=== PATIENT | female | born 1945 | race Caucasian/White ===

== ENCOUNTER 2016-12-27 21:15 | Inpatient (IN) ==
--- NOTE | 2016-12-27 22:03 | PROVIDER DOCUMENTATION ---
HPI-General Adult - General Chief Complaint: Abscess Stated Complaint: ABSCESS Time Seen by Provider: 12/27/16 21:48 Source: patient Allergies/Adverse Reactions: Patient Allergies Allergy/AdvReac Type Severity Reaction Status Date / Time Unable to Assess Allergy Verified 12/27/16 21:35 Home Medications: Home Medication List Medication Instructions Recorded Confirmed Last Taken Type Amoxicillin/Potassium Clav 875 mg PO BID 12/27/16 12/27/16 Unknown History [Amox-Clav 875-125 mg Tablet] Hydrocodone/Acetaminophen 5 mg PO 12/27/16 Unknown History [Hydrocodon-Acetaminophen 5-325] Lisinopril/Hydrochlorothiazide 10 mg PO DAILY 12/27/16 12/27/16 Unknown History [Lisinopril-Hctz 20-12.5 mg Tab] Metoprolol Succinate [Toprol Xl] 100 mg PO DAILY 12/27/16 12/27/16 Unknown History Warfarin Sodium [Warfarin Sodium] 5 mg PO DAILY 12/27/16 12/27/16 Unknown History - History of Present Illness -Gen Adult Nature of Presenting Problems: Pt. is 71 yof that presents with c/o abscess to genital area. Pt. reports symptoms for one week. Pt. states she saw her PCP and was placed on augmentin. Pt. states it has continued to get worse. Pt. reports a foul odor. Location of Pain/Injury: reports: genitalia. denies: none, head, face, mouth, neck, chest, upper extremity, hand(s), abdomen, back, pelvis, lower extremity, feet, upper body, lower body, generalized, other Pain Radiation: reports: no radiation. denies: arm(s), back, buttocks, chest, epigastric, feet, groin, jaw, flank (L), legs (lower), LLQ, LUQ, neck, periumbilical, flank (R), RLQ, RUQ, shoulder(s), scapula, scrotal, sternal notch , suprapubic, legs (upper), urethral, vaginal, other Quality of Pain: reports: aching. denies: burning, cramping, dull, fullness, indigestion, pressure, sharp, stabbing, tearing, throbbing, tightness Severity: reports: moderate. denies: mild, severe Onset/Duration: reports: gradual, 1 week ago Timing: reports: still present, constant, changing over time, getting worse. denies: improving, gone now, resolved prior to arrival, intermittent Context/Activities at Onset: reports: none. denies: recent emotional stress, recent physical stress, recent trauma history, possible bad food, cold exposure , out of country travel Modifying Factors: improves with: nothing Associated Symptoms: reports: genitourinary problems. denies: denies symptoms, anxiety, arm pain, back/neck pain, chest pain, constipation, cough, diaphoresis , diarrhea, dizziness, EENT symptoms, fatigue, fever/chills, headaches, heartburn, joint pain, loss of appetite, malaise, muscle aches, sinus congestion /drainage, nausea, rash, seizure, shortness of breath, sensory/motor loss, pain with inspiration, swelling/mass in abdomen, syncope, vomiting, weakness, trouble walking, other Similar Symptoms Previously?: Yes Recently seen or treated by another doctor?: Yes Review of Systems - Adult - REVIEW OF SYSTEMS - ADULT Constitutional: reports: see HPI. denies: chills, fever, fatique Eyes: reports: see HPI. denies: discharge, blurred vision, double vision Ears, Nose, Mouth & Throat: reports: see HPI. denies: ear discharge, nose pain , mouth/dental pain, throat swelling Cardiovascular: reports: see HPI. denies: chest pain, irregular heart rate, palpitations, syncope Respiratory: reports: see HPI. denies: cough, dyspnea on exertion, pleurisy, shortness of breath, wheezing Gastrointestinal: reports: see HPI. denies: abdominal pain, hematemesis, diarrhea, nausea, vomiting Genitourinary: reports: see HPI. denies: dysuria, discharge, hematuria, incontinence, urgency Musculoskeletal: reports: see HPI. denies: bone pain, back pain, joint pain, muscle aches, muscle weakness, neck pain Integumentary: reports: see HPI, skin sores/ulcer (Large abscess to the left buttock at the labia majora with erythema to the surrounding area.). denies: hives, itching, rash Neurological: reports: see HPI. denies: ataxia, headache/migraines, numbness, seizure, tremors Psychiatric: reports: see HPI. denies: anxiety, depression, emotional problems , insomnia, panic attacks, suicidal thoughts Past History - Adult - PAST MEDICAL HISTORY-ADULT Review of Records: reports: Old Records Reviewed, Nursing Assessment Review, Medications Reviewed, Social history reviewed & non-contributory. - IMMUNIZATION STATUS Childhood Immunizations: See Nurse Assessment Flu Vaccine: See Nurse Assessment - FAMILY HISTORY Family History: reviewed, not pertinent - SOCIAL HISTORY Smoking: non-smoker Physical Exam-General - PHYSICAL EXAM-ADULT Initial Vital Signs Reviewed: Yes - CONSTITUTIONAL General Appearance: alert, moderate distress, obese. negative: thin, anxious, lethargic, slow to respond, obtunded, combative - EYES Eyes: PERRL/EOMI, pink conjunctivae. negative: conjuctival exudate, scleral icterus, subconjunctival hemorrhage - HEAD, EARS, NOSE, MOUTH & THROAT HENMT: normocephalic/atraumatic, moist mucous membranes. negative: angioedema, frontal tenderness, maxillary tenderness - NECK Neck: non-tender, full range of motion, supple, normal inspection. negative: lymphadenopathy, trachial deviation, thyromegaly - RESPIRATORY Respiratory: lungs clear, normal breath sounds. negative: crackles, rales, rhonchi, stridor, wheezing - CARDIOVASCULAR Cardiovascular: normal peripheral pulses, regular rate, rhythm, no edema, no JVD , no murmur. negative: extra beats, friction rub, irregularly irregular - GASTROINTESTINAL (ABDOMEN) Abdominal Exam: normal bowel sounds, non tender, soft. negative: distended, guarding, rigid, rebound, tenderness, hernia, mass - GENITOURINARY Female Genitalia/Pelvic Exam: lesions (There is a large necrotic lesion on the left buttock that carries over onto the left labia majora with massive surrounding erythema. The necrotic area is approximatly 3 inches by 1.5 inches with mild drainage. There is a foul odor coming from the lesion.) Rectal Exam: deferred Hemoccult Exam: deferred - LYMPHATIC Lymphatic: no adenopathy. negative: axilla node tender, cervical node tenderness - MUSCULOSKELETAL Back Exam: normal inspection, no CVA tenderness, no vertebral tenderness. negative: ecchymosis, swelling, vertebral tenderness Extremity: normal range of motion, non-tender, normal gait, normal inspection. negative: deformity, erythema, inflammation, swelling, tenderness Peripheral Pulses: radial (R): 2+, radial (L): 2+ - SKIN Integumentary: normal color, normal turgor, warm/dry, embolic lesions (There is a large necrotic lesion on the left buttock that carries over onto the left labia majora with massive surrounding erythema. The necrotic area is approximatly 3 inches by 1.5 inches with mild drainage. There is a foul odor coming from the lesion.), erythema (There is a large necrotic lesion on the left buttock that carries over onto the left labia majora with massive surrounding erythema. The necrotic area is approximatly 3 inches by 1.5 inches with mild drainage. There is a foul odor coming from the lesion.), swelling ( There is a large necrotic lesion on the left buttock that carries over onto the left labia majora with massive surrounding erythema. The necrotic area is approximatly 3 inches by 1.5 inches with mild drainage. There is a foul odor coming from the lesion.), tenderness (There is a large necrotic lesion on the left buttock that carries over onto the left labia majora with massive surrounding erythema. The necrotic area is approximatly 3 inches by 1.5 inches with mild drainage. There is a foul odor coming from the lesion.). negative: cyanosis, diaphoresis, ecchymosis, jaundice, mottled, pallor, petechiae, purpura , rash - NEUROLOGIC Neurologic: grossly normal, no motor/sensory deficits. negative: aphasia, facial droop, focal weakness, motor weakness, sensory deficit - PSYCHIATRIC Psych/Mental Status: normal mood/affect, normal thought content, normal thought process, oriented x 3. negative: anxious, paranoid, tearful Progress - PLAN OF CARE/RESULTS Progress/Plan/Lab Results: Vital Signs - 8 hr 12/27/16 21:28 Temperature 98 F Pulse Rate 90 Respiratory Rate 18 Blood Pressure 147/88 O2 Sat by Pulse Oximetry 96 Orders Category Date Time Status Saline Loc NOW Care 12/27/16 21:57 Ordered CBC WITH ELECTRONIC DIFF [HEME] Stat Lab 12/27/16 21:57 Ordered COMPREHENSIVE METABOLIC PANEL [CHEM] Stat Lab 12/27/16 21:57 Ordered WOUND CULTURE INC GRAM STAIN [RM] Stat Lab 12/27/16 22:00 Uncollected Discussed results and plan of care with patient. Patient agrees with plan and verbalizes understanding. - CONSULTS/PCP/HOSPITALIST Notification #1 *Consult/PCP/Hospitalist*: Dr. Pang Time Discussed: 22:00 Reason/Comments: Consult Consult Disposition: other (Admit to medicine and he will see in the morning. He states he does not need blood cultures.) #2 Consult: Dr. Banuelos Time Discussed: 22:02 Reason/Comments: Admission Consult Disposition: Admit Departure - Departure Date of Disposition Decision: 12/27/16 Time of Disposition Decision: 22:16 DIAGNOSIS: Abscess Disposition: ADMITTED INPATIENT 09 Certified Medical Emergency: Emergent Condition: Stable Referrals and Follow-Ups: Kevin Jackson MD [Primary Care Provider] - - Critical Care Note This patient required my direct & personal management of CC.: No Attestation - Physician/ BEBETO Attestation Patient care was provided by Advanced Practice Provider:: Yes Advanced Practice Provider:: Amie Mckinney (The physician is on site and available for consultation but did not have face to face contact with the patient. ) Advanced Practice Provider documentation review:: The Mid-level provider documentation, treatment plan and medical decision making was reviewed by the physician who agrees with all treatment and medical decision making by the MLP.
[2016-12-27] MEDS ORDERED: MORPHINE IV PRN (22:17)
[2016-12-27] MEDS ORDERED: TYLENOL PO PRN (22:17)
[2016-12-27] MEDS ORDERED: NS 1,000 ML IV ONE (22:17)
[2016-12-27] MEDS ORDERED: ZOFRAN IV PRN (22:17)
[2016-12-27 23:12] LABS: BASO% 0.3 % (0.0-0.8); EOS# 0.17 X1000 (0.0-0.7); EOS% 1.1 % (0.0-10.0); HEMATOCRIT 32.7 % (37.0-47.0); HEMOGLOBIN 10.7 g/dL (12.0-16.0); IMM GRAN# 0.38 X1000 (0.0-0.04); IMM GRAN% 2.5 % (0.0-0.5); LYMPH# 2.64 X1000 (1.2-3.4); LYMPH% 17.3 % (20.5-51.1); MANUAL DIFF NEEDED? NO; MCH 26.7 PG (27-31); MCHC 32.7 g/dL (33-37); MCV 81.5 FL (81-99); MONO# 1.22 X1000 (0.11-0.59); MPV 9.1 FL (7.4-10.4); NEUT% 70.8 % (42.2-75.2); PLT 481 X1000 (130-400); RBC 4.01 XMIL (4.2-5.4)
[2016-12-27 23:17] LABS: AGAP 13; ALKALINE PHOSPHATASE 162 U/L (32-104); BUN 30 mg/dL (8-22); CALCIUM 8.7 mg/dL (8.8-10.2); CHLORIDE 103 mmol/L (98-107); COSMO 286; GOT 34 U/L (10-30); GPT 28 U/L (10-36); POTASSIUM 3.9 mmol/L (3.5-5.1); SODIUM 139 mmol/L (136-145); TCO2 24 mmol/L (25-35); TOTAL PROTEIN 7.2 g/dL (6.3-8.3)
[2016-12-27] MEDS: ZOSYN 3.375 GM/NS 3.375 GM/50 ML IVPB IV SCH (23:17)
[2016-12-28] MEDS: ZOSYN 3.375 GM/NS 3.375 GM/50 ML IVPB IV SCH ×6 (04:10→23:34)
[2016-12-28] MEDS ORDERED: VANCOMYCIN IV PER PHARMACY MISC SCH (08:30)
[2016-12-28 08:32] LABS: PTT PL 84.7 Seconds (22.6-43.9)
[2016-12-28] MEDS: MORPHINE IV PRN ×2 (08:40→21:34)
[2016-12-28 09:33] LABS: PROTIME 52.6 Seconds (12.1-15.5)
[2016-12-28 09:35] LABS: INR 6.02 (0.86-1.15)
[2016-12-28] MEDS ORDERED: VANCOMYCIN 2,000 MG in NS 500 ML IV ONE (10:00)
[2016-12-28] MEDS ORDERED: VITAMIN K 10 MG in NS 50 ML IV ONE (10:38)
[2016-12-28] MEDS ORDERED: NS 500 ML ONE (11:24)
[2016-12-28] MEDS ORDERED: ROBINUL ONE (12:11)
[2016-12-28] MEDS ORDERED: QUELICIN (DOSE) ONE (12:11)
[2016-12-28] MEDS ORDERED: ZEMURON ONE (12:11)
[2016-12-28] MEDS ORDERED: DIPRIVAN 1% ONE ×2 (12:12→12:54)
[2016-12-28] MEDS ORDERED: XYLOCAINE-MPF 2% ONE (12:12)
[2016-12-28] MEDS ORDERED: FENTANYL ONE (12:14)
[2016-12-28] MEDS ORDERED: NS 250 ML ONE (12:59)
[2016-12-28] MEDS ORDERED: MORPHINE ONE (13:32)
--- NOTE | 2016-12-28 14:15 | CONSULTATION ---
DATE OF CONSULTATION: 12/28/2016 REASON FOR CONSULTATION: Labial abscess. SUMMARY: Klarissa Farris is a 71-year-old who has approximately 10-12 day history of a "boil" on her buttocks. She saw a provider at med surg and later saw Dr. Jackson, she was placed on 1 set of antibiotics that she apparently had a reaction to, she is unsure what those antibiotics are, Dr. Jackson later started her on Augmentin. There was spontaneous drainage of this abscess later. She went to the emergency room last evening with increased pain and she was diagnosed with a labial abscess and was admitted to the hospital. Zosyn was started. PAST MEDICAL HISTORY: Patient has a history of atrial fibrillation, she also has history of hypertension. She is on anticoagulants. PHYSICAL EXAMINATION: Shows a morbidly obese female. Vital Signs stable. She is afebrile. On examination there is erythema and swelling from her left labia all way around to the buttocks to the lower back. There are several draining lesions in this area. Wound culture has been performed. IMPRESSION: Labia/buttocks abscess. PLAN: It is impossible say whether this started as labial abscesses and has tracked to the buttocks or some type of perirectal abscess that has tracked. I have consulted Dr. London, he will come in to see her, anticipate will have to take her to the operating room at some point for exam under anesthesia to see if there is a rectal track. Will also need to do an extensive debridement. She is on Zosyn, I am going to add vancomycin to her antibiotic protocol as we wait Dr. London's input. cc: Kilo Pang MD [facility]
[2016-12-28 14:34] LABS: INR 2.19 (0.86-1.15); PROTIME 24.2 Seconds (12.1-15.5)
--- NOTE | 2016-12-28 16:10 | HISTORY AND PHYSICAL ---
PRIMARY CARE PHYSICIAN: Dr. Kevin Jackson. CHIEF COMPLAINT: Genital abscess for the past week that has progressively worsened. HISTORY OF PRESENTING ILLNESS: This is a 71-year-old, morbidly obese, female who presents to [facility] ER with complaints of a genital abscess for 1 week that has progressively worsened and is now draining. She is noted to have a white blood cell count is 15.26. She had a PT and INR this a.m. that was 52.6 and 6.02. The area is to her left labia and it is draining a foul-smelling, green pus that is stringing out of the wound, tender to touch. So, she has been admitted for further evaluation and treatment. PAST MEDICAL HISTORY: Hypertension, atrial fibrillation, and hypercholesterolemia. PAST SURGICAL HISTORY: Cataract surgery, appendectomy, cholecystectomy, bilateral tubal ligation, and a hysterectomy. FAMILY HISTORY: Noncontributory. SOCIAL HISTORY: She currently is living with her daughter. Denied any tobacco, alcohol, or illicit drug use. ALLERGIES: She has no known drug allergies. MEDICATIONS: We will hold the following medications at this time. She was taking amoxicillin 875 mg p.o. b.i.d., Novelty 5 one p.o. q.4 hours p.r.n., and warfarin 5 mg p.o. daily. We will continue the following, to begin in the a.m. Lipitor 10 mg p.o. daily, lisinopril/hydrochlorothiazide 20/12.5 p.o. daily, and metoprolol 100 mg p.o. daily. LABORATORY DATA: Showed a white blood cell count of 15.26, hemoglobin 10.7, hematocrit 32.7, platelets 481,000. PT and INR of 52.6 and 6.02. Sodium 139, potassium 3.9, chloride 103, CO2 24, BUN of 30, creatinine 0.8, glucose of 146. REVIEW OF SYSTEMS: She denied any fever, chills, blurred vision, dizziness, chest pain, coughing, shortness of breath, abdominal pain, constipation, diarrhea, burning or hurting with urination. She is positive for pain to her left labia in the perineal area due to her abscess that is draining. PHYSICAL EXAMINATION: VITAL SIGNS: On arrival, she had a temperature of 98 degrees, pulse 90 respirations 18, blood pressure 147/88, saturating 96% on room air. GENERAL: This is a 71-year-old morbidly obese, female lying in the bed, answers questions appropriately. HEENT: Normocephalic and atraumatic. Pupils are equal, round, reactive to light. Extraocular movements are intact. The oropharynx and nares are clear. NECK: Supple. LUNGS: Clear to auscultation bilaterally with equal lung expansion and chest wall movement. HEART: With regular rate and rhythm. No murmurs, rubs, or gallops. ABDOMEN: Soft, nontender, nondistended. Bowel sounds are present x4 quadrants. EXTREMITIES: No clubbing, cyanosis, or edema. GENITOURINARY: Patient is noted to have an abscess to the left outer labia that is draining a foul-smelling, green, stringy, purulent discharge. NEUROLOGICAL: The cranial nerves 2 through 12 are grossly intact. ASSESSMENT: 1. Left labial abscess. 2. Coagulopathy secondary to Coumadin use. 3. Leukocytosis. 4. Hypertension. PLAN: She was admitted to the medical unit. Held NPO. We have consulted surgery who plans to take her for an I D after we give 2 units of fresh frozen plasma and give vitamin K 10 mg IV x1. Continue her on Zosyn 3.375 g IV q.6 and vancomycin per pharmacy protocol. NURSES' AIDE was also consulted. Wound culture has been obtained and is pending. Dictated by SASHA Edmonds for Jhony Devries MD cc: SASHA Edmonds MD David Francis, MD
--- NOTE | 2016-12-28 16:49 | CONSULTATION ---
DATE OF CONSULTATION: 12/28/2016 Ms. Farris is a middle aged, overweight white female who presented to the emergency department yesterday with foul smelling drainage and skin necrosis involving the left perineum including the left labia majora and buttock. She had a foul older from this drainage. She was admitted to the hospitalist at [facility]. We were asked to see her today. I was called by Dr. Pang, BOARD HAMMER OPERATOR. PAST MEDICAL HISTORY: She is anticoagulated. MEDICATIONS: Coumadin, metoprolol, lisinopril, hydrocodone and amoxicillin ALLERGIES: No known drug allergies. SOCIAL HISTORY: Her family is at the bedside. REVIEW OF SYSTEMS: A 14 point review of systems was performed and was essentially negative except for this recent infection. PHYSICAL EXAM: Vital signs: On exam, her temperature is 98 degrees, heart rate is 90, blood pressure 147/88. General: She is an overweight white female. No acute distress. She is awake, cooperative, seems comfortable. HEENT Exam: No jaundice. No oral lesions. No cervical or supraclavicular lymphadenopathy. Heart: Has an irregular rate. Lungs: Were clear. Abdomen: Was soft. She had foul-smelling drainage involving her left groin and buttock, also necrotic tissue consistent with soft tissue infection. Rectal/Vaginal: Exams not performed. Extremities: She does have palpable peripheral pulses. Minimal peripheral edema. Neurologic: She had no focal deficits. IMPRESSION: Necrotizing soft tissue infection, left perineum and buttock. PLAN: Vitamin K, fresh frozen to correct her INR of 6 and take her to surgery for debridement of infected tissue and packing of the wound. I have discussed this procedure in detail with the patient and the family at the bedside. They understand she will have an open wound that is packed open. We may have to take her back to surgery to control a ongoing infection. She also understands she is at increased risk for bleeding because of her Coumadin. cc: Evie London MD
--- NOTE | 2016-12-28 18:54 | OPERATIVE NOTE ---
PROCEDURE DATE: 12/28/2016 PREOPERATIVE DIAGNOSIS: Necrotizing soft tissue infection, left buttock and perineum. POSTOPERATIVE DIAGNOSIS: Necrotizing soft tissue infection, left buttock and perineum. PRINCIPAL PROCEDURE: Debridement of skin, subcutaneous tissue, muscle and tendon of a 15 x 6 cm cavity perianal area left buttock and extending anteriorly into the left perineum. SURGEON: Evie London MD. ANESTHESIA: General. ESTIMATED BLOOD LOSS: 50 mL. DRAINS: None. INDICATIONS: Ms. Klarissa Farris is a 71-year-old overweight, white female, with possible diabetes who is admitted through the emergency department with a soft tissue infection, left buttock during the night. She was initially seen by Dr. Pang and I was asked to evaluate her. She has been on IV antibiotics. She had a necrotizing soft tissue infection involving her left buttock and surgical debridement was recommended. FINDINGS: She had this infection that extended from just lateral to the anus anteriorly involving the medial aspect of her left buttocks and up into the perineum. This involved her skin, subcutaneous tissue, muscle and deep fascia. The wound measured 15 x 6 cm. DESCRIPTION OF OPERATION: The patient was brought to the operating room, placed supine, received general anesthesia, was intubated. She was placed in candy-cane stirrups and the perineum and perirectal area were prepped and draped within the sterile field. I used Valdez scissors and forceps with teeth to debride the necrotic skin, subcutaneous tissue, muscle and tendon involving this wound. We debrided all this grayish foul-smelling tissue from the base of the abscess cavity. We felt we fully opened the wound. I had to use a 10 blade scalpel to open this area wider. We used cautery for bleeding. We thoroughly irrigated out the wound and then packed it with dilute soaked Betadine gauze, followed by a dry dressing. Plans are for her to go the recovery room and then be readmitted to the floor. cc: Evie London MD
[2016-12-28] MEDS: LIPITOR PO SCH (20:31)
[2016-12-28] MEDS: VANCOMYCIN 1,400 MG in NS 250 ML IV SCH (21:35)
[2016-12-29] MEDS: ZOSYN 3.375 GM/NS 3.375 GM/50 ML IVPB IV SCH ×3 (06:22→21:16)
[2016-12-29 06:50] LABS: MANUAL DIFF NEEDED? NO
[2016-12-29 06:56] LABS: BASO% 0.3 % (0.0-0.8); EOS# 0.17 X1000 (0.0-0.7); EOS% 1.3 % (0.0-10.0); HEMATOCRIT 30.5 % (37.0-47.0); HEMOGLOBIN 9.4 g/dL (12.0-16.0); IMM GRAN# 0.18 X1000 (0.0-0.04); IMM GRAN% 1.4 % (0.0-0.5); LYMPH# 1.97 X1000 (1.2-3.4); LYMPH% 15.3 % (20.5-51.1); MCH 26.2 PG (27-31); MCHC 30.8 g/dL (33-37); MONO# 0.76 X1000 (0.11-0.59); MONO% 5.9 % (1.7-9.3); MPV 8.8 FL (7.4-10.4); NEUT% 75.8 % (42.2-75.2); PLT 388 X1000 (130-400); RBC 3.59 XMIL (4.2-5.4)
[2016-12-29 07:39] LABS: INR 1.38 (0.86-1.15); PROTIME 17.2 Seconds (12.1-15.5)
[2016-12-29 07:49] LABS: AGAP 10; BUN 18 mg/dL (8-22); CALCIUM 8.6 mg/dL (8.8-10.2); CHLORIDE 104 mmol/L (98-107); COSMO 283; POTASSIUM 3.9 mmol/L (3.5-5.1); SODIUM 140 mmol/L (136-145); TCO2 26 mmol/L (25-35)
[2016-12-29] MEDS ORDERED: COLCRYS PO PRN (08:26)
[2016-12-29] MEDS: TOPROL XL PO SCH (10:52)
[2016-12-29] MEDS: HYDROCHLOROTHIAZIDE PO SCH (10:53)
[2016-12-29] MEDS: VANCOMYCIN 1,400 MG in NS 250 ML IV SCH ×2 (10:53→21:17)
[2016-12-29] MEDS: PRINIVIL PO SCH (10:53)
[2016-12-29] MEDS: MORPHINE IV PRN ×2 (13:23→21:17)
--- NOTE | 2016-12-29 15:02 | PROGRESS NOTE ---
DATE: 12/29/2016 SUBJECTIVE: Patient is feeling a little better today. Her pain is being controlled well with morphine. She denies chest pain, palpitations, nausea, vomiting, dizziness. OBJECTIVE: Vital Signs: Blood pressure he has 146/88 with a heart rate of 73, respirations are 18, temperature is 97.8 degrees with oxygen saturations of 95-97% on 2 L nasal cannula. Cardiovascular: Regular rate and rhythm. S1 and S2 appreciated. Pulmonary: Breath sounds are clear with no increased work of breathing noted. Chest does rise and fall symmetrically with respiration. Gastrointestinal: Abdomen is soft, nontender, nondistended, with bowel sounds in all 4 quadrants. Extremities: No clubbing, cyanosis, or edema. Calves are nontender. Pulses are palpable x4. Neurologic: She is alert and oriented x3. LABORATORY: WBC is 12.8, with a hemoglobin 9.4, hematocrit 30.5 and platelets of 388,000. Sodium is 140, potassium 3.9, BUN 18, creatinine 0.8, with a glucose of 128. INR is 1.38. Wound culture reveals no growth. ASSESSMENT AND PLAN: 1. Left labial abscess, status post debridement of skin, subcutaneous tissue, and muscle and tendon, a 15 x 6 cm cavity perianally. 2. Coagulopathy, secondary to Coumadin use. 3. Leukocytosis. 4. Hypertension. 5. Atrial fibrillation, history of. We will continue with her current medication regimen. So far, her cultures are revealing no growth. We will trend her laboratory, continue with antibiotic coverage. We will continue to follow INR. Target INR for this patient will be 2-3 having atrial fibrillation. We will check with Dr. London regarding being able to restart her Coumadin. Dictated by SASHA Velázquez for Deangelo Alvarez MD cc: SASHA Velázquez MD
--- NOTE | 2016-12-29 19:31 | PROGRESS NOTE ---
DATE: 12/29/2016 SUBJECTIVE: Ms. Farris is now postop day 1 from drainage of a left buttock and perineal abscess. Clinically she looks better. OBJECTIVE: Her heart rate 77, blood pressure 127/58, O2 saturation 95%. Low-grade temp 99.8 degrees. She had 1 formed bowel movement. Her white count went from 15 to 12, hematocrit 30%. Our wound clinic changed her dressing today. Her electrolytes are within normal limits. PLAN: Will advance her diet. Discontinue her Plunkett tomorrow. Re-change her wound again and will look to get her home with home health and wound care. cc: Evie London MD
[2016-12-29] MEDS: LIPITOR PO SCH (21:17)
[2016-12-30] MEDS: ZOSYN 3.375 GM/NS 3.375 GM/50 ML IVPB IV SCH ×4 (02:22→18:53)
[2016-12-30] MEDS: MORPHINE IV PRN (04:40)
[2016-12-30] MEDS ORDERED: NORCO-5 PO PRN (08:38)
[2016-12-30] MEDS: COUMADIN PO SCH (09:02)
[2016-12-30] MEDS: TOPROL XL PO SCH (09:02)
[2016-12-30] MEDS: HYDROCHLOROTHIAZIDE PO SCH (09:02)
[2016-12-30] MEDS: PRINIVIL PO SCH (09:02)
--- NOTE | 2016-12-30 11:19 | PROGRESS NOTE ---
DATE: 12/30/2016 SUBJECTIVE: The patient notes that she is feeling a lot better this morning. She is having less pain and swelling. She had a dressing change this morning, which she tolerated decently well. OBJECTIVE: Vital Signs: Temperature 97, pulse 84, respiratory rate 18, BP 116/90, satting 96% on room air. General: Patient awake, alert. She is currently in no respiratory distress. Pleasant to talk with. Neck: Supple. CV: Regular rate. Chest: Relatively clear. Abdomen: Soft. Nondistended. Extremities: Moves all extremities. Neurologic: No focal neurological changes. Skin: Warm and dry. No rashes. ASSESSMENT: 1. Atrial fibrillation. Patient's Coumadin has been held secondary to her surgery. At this point, she is no longer hopefully going to require surgery. We will restart her Coumadin as her INR is down to 1 and she has a history of atrial fibrillation. We will start her back on Lovenox as well at 40 mg once a day and follow. 2. Left labial abscess status post incision and drainage. She is still on Zosyn and vancomycin. She is currently growing gram-positive cocci and gram-negative rods. We will continue antibiotics today, await culture, and discharge planning after culture and sensitivity. cc: Deangelo Alvarez MD
[2016-12-30] MEDS: VANCOMYCIN 1 GM/NS 1 GM/250 ML IVPB IV SCH (12:30)
--- NOTE | 2016-12-30 17:29 | PROGRESS NOTE ---
DATE: 12/30/2016 Ms. Klarissa Farris is a 71-year-old overweight female who I had to debride for necrotizing fasciitis. She has had daily dressing changes and I think her wound is mostly clean on inspection today. She is awake, cooperative, clinically feels better. Her heart rate is 78, blood pressure 137/61. O2 saturation 96%. She is afebrile. She is eating 100% of her meals. Wound is mostly clean. Maybe we can get her home as early as tomorrow with help from home health. I am thinking about [facility] and Sara Schaefer as her home health nurse. cc: Evie London MD
[2016-12-30] MEDS: LIPITOR PO SCH (19:59)
[2016-12-31] MEDS: MORPHINE IV PRN ×2 (00:18→09:54)
[2016-12-31] MEDS: VANCOMYCIN 1 GM/NS 1 GM/250 ML IVPB IV SCH ×2 (00:19→12:02)
[2016-12-31] MEDS: ZOSYN 3.375 GM/NS 3.375 GM/50 ML IVPB IV SCH ×2 (00:37→08:15)
[2016-12-31] MEDS: COUMADIN PO SCH (08:15)
[2016-12-31] MEDS: HYDROCHLOROTHIAZIDE PO SCH (08:15)
[2016-12-31] MEDS: TOPROL XL PO SCH (08:15)
[2016-12-31] MEDS: PRINIVIL PO SCH (08:15)
[2016-12-31] MEDS ORDERED: SEPTRA DS PO SCH (09:00)
[2016-12-31] MEDS ORDERED: LOVENOX SUBQ SCH (09:00)
[2016-12-31 14:40] VITALS: BP 106/57
--- NOTE | 2016-12-31 21:54 | DISCHARGE SUMMARY ---
ADMISSION DATE: 12/27/2016 DISCHARGE DATE: 12/31/2016 DATE OF ADMISSION: 12/27/2016. DATE OF DISCHARGE: 12/31/2016. ADMITTING DIAGNOSIS: Necrotizing soft tissue infection in the left buttock and perineum. POSTOPERATIVE DIAGNOSIS: Necrotizing soft tissue infection in the left buttock and perineum. PRINCIPAL PROCEDURE: Debridement of infected necrotizing soft tissue infection. DISCHARGE DIET: Diabetic diet. DISCHARGE DISABILITIES: Full. DISCHARGE DISPOSITION: Will have home health help her with her wound and I will see her on a regular basis in my outpatient offices. HOSPITAL COURSE: Ms. Klarissa Farris is a 71-year-old, overweight, white female, diabetic, who developed necrotizing soft tissue infection involving her anterior buttock and extending to her perineum. This required surgical debridement, which we did on her day of admission. After surgery we gave her wound care and also IV antibiotics and the wound cleaned up. We did not have to take her back to surgery. DISPOSITION: On the day of discharge, she was tolerating a diet. She was clinically feeling much better and we have arranged home health care to help with her wound, also discussed wound care with her daughter. She knows to contact me with any problems. Otherwise, I will see her in 2 weeks in my outpatient offices. cc: Evie London MD
--- NOTE | 2017-01-01 07:57 | DISCHARGE SUMMARY ---
ADMISSION DATE: 12/27/2016 DISCHARGE DATE: 12/31/2016 PRIMARY CARE PHYSICIAN: Dr. Kevin Jackson. CONSULTS: Dr. Berry London, general surgery; Dr. Kilo Pang, gynecology. DIAGNOSES: 1. Necrotizing soft tissue infection of left perineum and buttock, status post debridement of skin, subcutaneous tissue, muscle, and tendon. 2. Hyper-coagulopathy secondary to Coumadin use. 3. Leukocytosis, resolving. 4. Atrial fibrillation. 5. Chronic anticoagulation. DIAGNOSTICS: 1. On 12/28/2016, debridement of skin, subcutaneous tissue, muscle, and tendon of a 15 x 6 cm cavity, perianal area, left buttock extended anteriorly into the left perineum. 2. Microbiology: Vaginal wound culture revealed Staphylococcus epidermidis. HOSPITAL COURSE: Ms. Farris presented to the emergency room with a foul smelling drainage and skin necrosis to her left perineum. She was noted to have a white count of 15.2 with an INR of 6. Surgery was consulted and she was taken shortly thereafter and she underwent debridement of skin, subcutaneous tissue, muscle, and tendon of a 15 x 6 cm cavity perianally, area of left buttock, and extended anteriorly into the left perineum. She did tolerate this well. She has had daily dressing changes per wound care and the wound is healing. She also has been cleaning the area with Care Cleanse, packing with saline gauze, and covering with a 4 x 4 and abdominal pad daily. The wound is healing. She also has a partial thickness wound to her left buttock that is being covered with Mepilex every 3 days or as needed. She has remained afebrile. We did continue her home medications as appropriate. She did receive vancomycin and Zosyn initially. Sensitivities for the Staphylococcus epidermidis did return. It was multiresistant, being resistant to clindamycin, erythromycin, Levaquin, oxacillin, penicillin G, and tetracycline. She was sensitive to Bactrim DS thankfully and she will be discharged home on this. She was noted to have an INR of 6 on admission. Her warfarin was held the 1st day or 2. We did restart her warfarin on the . Overall, she states that she is feeling much better. She is getting up to the bedside commode with assistance and sitting in a chair, although she cannot sit long due to pain with the pressure on this area of sitting. DISCHARGE PHYSICAL EXAMINATION: Cardiovascular: Regular rate and rhythm. S1 and S2 are appreciated. Pulmonary: Breath sounds are clear with no increased work of breathing noted. Gastrointestinal: Abdomen is large, soft, nondistended, nontender, with bowel sounds in all 4 quadrants. Extremities: No clubbing, cyanosis, or edema. Calves are nontender. Pulses are palpable x4. Neurologic: She is alert and oriented x3. Cranial nerves 2-12 grossly intact. Skin: She does have a dressing intact to her right perineal fold. Discharge Vital Signs: Blood pressure is 139/59, with a heart rate of 72, respirations are 16, temperature is 97.5 degrees, with room air saturations of 94-99%. DISCHARGE ACTIVITY: As tolerated. FOLLOWUP: 1. She will follow up with Dr. London as instructed. 2. Dr. Kevin Jackson, her PCP. She was instructed to call his office later today or in the morning to update on events. 3. Home health will draw an INR on as well as Thursday. There are orders to call these to Dr. Jackson. She and her family have been instructed that she will get instructions on taking her warfarin at the correct dose and followup INRs per Dr. Jackson. They were also instructed that if they do not hear anything from him by the next day, they are to call his office. DISPOSITION: She is going to be discharged with home health through [facility]. They will perform her dressing changes, draw her INRs at present, and assist with warfarin dosing. She is being discharged home in stable condition with family members. TIME SPENT: This is a greater than 30 minute discharge. Dictated by SASHA Velázquez for Deangelo Alvarez MD cc: SASHA Velázquez MD David Francis, MD
== END 2016-12-31 18:21 | disposition home health service (06) ==
LOC: P.ED 21:15 → SUATTDRO 22:54 → P.MEDSURG 22:54
PROVIDERS: ATTEND Family Medicine